=== PATIENT | male | born 1940 | race Caucasian/White ===

== ENCOUNTER → 2016-11-13 | Outpatient (CLI) | payer MEDICARE, OTHER ==
[~2016-11-13] MED LIST: ALDACTONE PO; ALDACTONE25 MG PO; ANEXSIA 7.5/3251 TA1 PO; ARAVA10 MG PO; ASPIRIN81 M2 PO; BACTRIM-IV160 MG PO; CARVEDILOL12.5 MG PO; CLARITIN10 M3 PO; CLARITIN10 MG PO; COREG6.25 MG PO; DOXYCYCLINE HY100 M3 PO; ENBREL25 MG/0.5 SQ; FLOMAX0.4 M1 PO; FUROSEMIDE40 MG PO; HYDROCODON-ACE1 EAC9 PO; LISINOPRIL10 MG PO; LYRICA50 MG PO; MELATONIN3 M4 PO; MELOXICAM15 MG PO; MELOXICAM7.5 MG/5 M PO; METHOTREXATE25 MG/M3 IJ; MULTIVITAMIN1 UDCAP PO; MULTIVITAMINS1 EAC3 PO; NICOTINE PATCH1 EACH TD; OMEPRAZOLE20 M2 PO; OMEPRAZOLE40 M1 PO; PLAQUENIL200 MG PO; PREDNISONE10 M1 PO; PREDNISONE5 M1 PO; PRILOSEC20 MG PO; SYMBICORT80 INH; TIZANIDINE HCL2 M1 PO; VISTARIL50 MG PO; VITAMIN D 22000 UNIT PO; VITAMIN D2000 UNI1 PO; ZYLOPRIM100 MG PO
--- NOTE | ~2016-11-13 | CT57 ---
[facility] A Service of [facility] & [facility] RADIOLOGY TEXT RESULTS PATIENT: LI MUNOZ LOCATION: [facility] : 41 UNIT #: [id number] AGE: [address]: Eliot Fernandez MD SEX: M ORDER DR: [id number] [facility] [address] [facility]. [place], [place] [address] [id number] O MR#: [id number] Acc #: [id number] NAME: LI MUNOZ. : 1940 SEX: M STUDY DATE/TIME: 11/13/2016 9:27 UNIT: [facility] ROOM: STUDY DESCRIPTION: CT Chest Wo Cont Attending Physician: Eliot Fernandez M.D. Referring Physician: Eliot Fernandez M.D. Ordering Physician: Eliot Fernandez M.D. Primary Care Physician: Dwayne Gordon Jr., M.D. MEDICAL IMAGING REPORT This report is preliminary unless electronic signature is present EXAM High-resolution chest CT INDICATION The patient has a history of shortness of breath for 5-6 months and carries a diagnosis of interstitial lung disease. COMPARISON January 23, [address] images were obtained from the thoracic inlet through the dome of the diaphragm per high-resolution protocol. This CT exam was performed with one or more of the following radiation dose reduction techniques: automatic exposure control, adjustment of mA and/or kV according to patient size, and iterative reconstruction. FINDINGS Comparison is made to a prior exams dating back to January 2014. Background emphysematous changes are again seen. There is also evidence of pulmonary fibrosis with extensive peripheral reticulation noted as well as areas of honeycombing, also noted. I think the appearance is really not significantly changed when compared to January 2014. I do not see any convincing evidence of air trapping. The thyroid gland and trachea appear within normal limits. There is a small hiatal hernia. Patient does have some prominent mediastinal lymph nodes, but I do think they are stable when compared to January 2014. There is no pleural or pericardial effusion. The patient does have some aneurysmal dilatation of the descending thoracic aorta which measures about 3.1 cm proximally, about 3.1 cm in its midportion and about 2.6 cm distally. Images through the upper abdomen demonstrate a left renal cyst. The gallbladder is surgically absent. No acute abnormalities are seen within the upper STS. [facility] A Service of [facility] & [facility] RADIOLOGY TEXT RESULTS PATIENT: LI MUNOZ LOCATION: [facility] : 41 UNIT #: [id number] AGE: [address]: Eliot Fernandez MD SEX: M ORDER DR: abdomen. Review of bony windows does not demonstrate any aggressive osseous abnormalities. No suspicious pulmonary nodules or masses are seen. IMPRESSION 1. Patient is again noted to have background emphysematous changes as well as pulmonary fibrotic changes in a basilar predominant distribution associated with some peripheral reticulation and honeycombing. Similar findings were present on the prior exam from January 2014 and there really not been any significant progression since then. No suspicious pulmonary nodules or masses are seen. 2. Small hiatal hernia. 3. Prominent mediastinal lymph nodes. These were also present on the exam from January 2014 and are probably not significantly changed. 4. Left renal cyst. 5. Please see the body of the report for any other additional incidental findings. Dictated by... Evelin Alvarado M.D. THIS IS AN ELECTRONICALLY VERIFIED REPORT Evelin Alvarado M.D. at 11/16/2016 3:39 PM JULIO CESAR/jw TD: 11/14/2016 22:21 JOB #: [id number] MEDICAL IMAGING REPORT Page 1 of 1 COPY
== END | disposition home or self-care (01) ==
LOC: CCAT 08:53
DX: J84.9 Interstitial pulmonary disease, unspecified (principal); K44.9 Diaphragmatic hernia without obstruction or gangrene; N28.1 Cyst of kidney, acquired
CPT/HCPCS: 71250

== ENCOUNTER 2016-11-30 08:40 | Inpatient (IN) | payer MEDICARE, OTHER ==
--- NOTE | ~2016-11-30 | CO ---
Unit #: [id number] #: [id number] Patient: LI MUNOZ [id number] [facility]. [place], [place] [address] [id number] I MR#: [id number] NAME: LI MUNOZ. ROOM: 311 Age: 76 Sex: M Admission Date: 11/30/2016 : 1940 Attending Physician: Fouzia Mcdonnell M.D. Primary Care Physician: Dwayne Gordon Jr., M.D. CONSULTATION REPORT REVISED REPORT HISTORY OF PRESENT ILLNESS This is a 76-year-old gentleman, who sees Dr. Mcdonnell with severely dilated nonischemic cardiomyopathy, ejection fraction was 10% to 15%. The patient has an AICD implanted. He is known to have chronic systolic heart failure, hypertension, hyperlipidemia, and COPD for which he is on nighttime oxygen. Normal coronaries in 2013. The patient now presents with worsening chest pain. He apparently was on walking up and down the steps at his house multiple times. He started to have pain across the chest radiating to both upper shoulders and diaphoresis. The patient has felt fatigue, has had insomnia for several days. He has been unable to sleep well. Denies any additional shortness of breath, cough, or paroxysmal nocturnal dyspnea. He does have some leg edema. Troponin has been negative in the emergency room. No acute ischemic changes. He went to see Dr. Fernandez, ordered CT scan of the chest. No nodules; however, there was presence of pulmonary fibrosis and emphysematous changes. The patient does not wear his oxygen regularly. We have been asked to see him for management of what this is probably nonischemic cardiac chest pain and to manage probable COPD exacerbation. PAST MEDICAL HISTORY Significant for nonischemic cardiomyopathy, mitral regurgitation, moderate pulmonary hypertension with RSVP 50 to 60, hypertension, hyperlipidemia, left bundle-branch block, diabetes mellitus type 2, chronic obstructive pulmonary disease, obstructive sleep apnea, history of rheumatoid arthritis, history of chronic GERD, history of esophageal strictures. PAST SURGICAL HISTORY Significant for AICD implantation, cholecystectomy, eye surgery. SOCIAL HISTORY The patient lives at home alone. He has limited activity because he has significant arthritis. He still smokes about a pack a day. No history of illicit drug or alcohol use. FAMILY HISTORY Negative for coronary artery disease. ALLERGIES The patient is allergic to codeine and ibuprofen. HOME MEDICATIONS Include hydrocodone/acetaminophen 7.5/325 mg b.i.d. p.r.n., Symbicort Unit #: [id number] #: [id number] Patient: LI MUNOZ 80/4.5 two puffs b.i.d., Lyrica 50 mg b.i.d., multivitamin one tablet daily, vitamin D 2000 units daily, meloxicam 15 mg daily p.r.n., Flomax 0.4 mg daily, Plaquenil 200 mg b.i.d., omeprazole 20 mg daily, furosemide 40 mg daily, lisinopril 10 mg daily, Aldactone 12.5 mg daily, Claritin 10 mg daily, Zanaflex 2 mg q.8 hours as needed, leflunomide 20 mg daily, carvedilol 12.5 mg b.i.d. REVIEW OF SYSTEMS Negative except as per the history of present illness. PHYSICAL EXAMINATION VITAL SIGNS: T-current 98.1, pulse 70, respiratory rate 26, blood pressure 134/73, saturations 94% on 2 L. HEENT: Extraocular movements are intact. CHEST: Clear to auscultation bilaterally. CARDIOVASCULAR: Regular rate. No gallop. ABDOMEN: Soft, nontender, and nondistended. EXTREMITIES: Shows edema +2 with some pitting areas. DIAGNOSTIC STUDIES LABORATORY RESULTS: Chest x-ray, which shows some diffuse interstitial infiltrates without clear consolidation. Dictated by... Chinyere Lujan/gold TD: 12/01/2016 06:23 JOB #: [id number] CONTINUATION PHYSICAL EXAMINATION VITAL SIGNS: T-current is 98.1, pulse is 70, respiratory rate 16, and blood pressure 148/82. HEENT: Extraocular movements are intact. CHEST: Shows very decreased breath sounds bilaterally. Some soft wheezes. CARDIOVASCULAR: Regular rate. No gallop. ABDOMEN: Soft, nontender, and nondistended. EXTREMITIES: Shows no evidence of edema. DIAGNOSTIC STUDIES LABORATORY RESULTS: The BNP is 166. BUN and creatinine 13/0.7, potassium 3.8, and glucose 122. ASSESSMENT/PLAN 1. Chronic obstructive pulmonary disease exacerbation with possible infection in the pulmonary fibrosis that the patient has. I am going to start the patient on doxycycline 100 mg b.i.d. to cover for staph and for atypical organisms. 2. Start a short course of steroids and then restart the patient's DuoNeb and Symbicort. Unit #: [id number] #: [id number] Patient: LI MUNOZ Thank you very much. Please page me at [phone] if you have any questions. Dictated by... Chinyere Lujan/gold TD: 12/01/2016 02:56 JOB #: [id number] CC: Deirdre/bruceision Please Delete CONSULTATION REPORT Page 1 of 1 X Brenden Treviño MD X CONSULTATION REPORT
--- NOTE | ~2016-11-30 | CR72 ---
[facility] A Service of [facility] & [facility] & [facility] RADIOLOGY TEXT RESULTS PATIENT: LI MUNOZ LOCATION: [facility] 311-01 : 41 UNIT #: [id number] AGE: [address]: Fouzia Mcdonnell MD SEX: M ORDER DR: [id number] [facility] [address] [facility]. [place], [place] [address] [id number] MR#: [id number] Acc #: [id number] NAME: LI MUNOZ. : 1940 SEX: M STUDY DATE/TIME: 11/30/2016 9:09 UNIT: [facility] ROOM: STUDY DESCRIPTION: CR Chest Single View Portable Attending Physician: David Black M.D. Ordering Physician: David Black M.D. Primary Care Physician: Dwayne Gordon Jr., M.D. MEDICAL IMAGING REPORT This report is preliminary unless electronic signature is present EXAM Portable chest one-view 11/30/2016 HISTORY 04/08/2014 HISTORY Chest pain for 3 days. FINDINGS Left side dual lead pacemaker device. There is extensive interstitial infiltrate with a basilar predominance, possibly representing interstitial edema, but there is no consolidation or effusion or pneumothorax. There is mild cardiomegaly. Dictated by... Jayro Diaz M.D. THIS IS AN ELECTRONICALLY VERIFIED REPORT Jayro Diaz M.D. at 11/30/2016 4:26 PM TEV/ea TD: 11/30/2016 12:39 JOB #: [id number] MEDICAL IMAGING REPORT Page 1 of 1 COPY
--- NOTE | ~2016-11-30 | EKG ---
PATIENT: LI MUNOZ UNIT #: [id number] Ventricular Rate: 70 BPM Atrial Rate: 70 BPM P-R Interval: 116 ms QRS Duration: 170 ms Q-T Interval: 488 ms QTC Calculation(Bezet): 527 ms P [place]: 56 degrees Calculated R [place]: -59 degrees Calculated T [place]: -8 degrees Diagnosis Line: Atrial-sensed ventricular-paced rhythm Diagnosis Line: Abnormal ECG Diagnosis Line: When compared with ECG of 08-APR-2014 14:09, Diagnosis Line: Electronic ventricular pacemaker has replaced Diagnosis Line: Sinus rhythm Diagnosis Line: Confirmed by MELISSA SNOW MD ([id number]) on Diagnosis Line: 12/01/2016 6:41:56 AM INTERPRETING MD: BRYAN
--- NOTE | ~2016-11-30 | EKG ---
PATIENT: LI MUNOZ UNIT #: [id number] Ventricular Rate: 64 BPM Atrial Rate: 64 BPM P-R Interval: 170 ms QRS Duration: 162 ms Q-T Interval: 464 ms QTC Calculation(Bezet): 478 ms P [place]: 29 degrees Calculated R [place]: -24 degrees Calculated T [place]: 151 degrees Diagnosis Line: Electronic ventricular pacemaker Diagnosis Line: When compared with ECG of 01-DEC-2016 06:29, Diagnosis Line: (unconfirmed) Diagnosis Line: Vent. rate has increased BY 3 BPM Diagnosis Line: Confirmed by MELISSA SNOW MD ([id number]) on Diagnosis Line: 12/02/2016 2:54:06 PM INTERPRETING MD: BRYAN
--- NOTE | ~2016-11-30 | EKG ---
PATIENT: LI MUNOZ UNIT #: [id number] Ventricular Rate: 61 BPM Atrial Rate: 61 BPM P-R Interval: 164 ms QRS Duration: 160 ms Q-T Interval: 480 ms QTC Calculation(Bezet): 483 ms P [place]: 77 degrees Calculated R [place]: 70 degrees Calculated T [place]: 166 degrees Diagnosis Line: Electronic ventricular pacemaker Diagnosis Line: When compared with ECG of 30-NOV-2016 09:11, Diagnosis Line: Vent. rate has decreased BY 9 BPM Diagnosis Line: Confirmed by MELISSA SNOW MD ([id number]) on Diagnosis Line: 12/02/2016 2:52:33 PM INTERPRETING MD: BRYAN
--- NOTE | ~2016-11-30 | CO ---
Unit #: [id number] #: [id number] Patient: LI MUNOZ [id number] [facility]. [place], [place] [address] [id number] I MR#: [id number] NAME: LI MUNOZ ROOM: 311 Age: 76 Sex: M Admission Date: 11/30/2016 : 1940 Attending Physician: Fouzia Mcdonnell M.D. Primary Care Physician: Dwayne Gordon Jr., M.D. Consultation Date: 11/30/2016 CONSULTATION REPORT HISTORY OF PRESENT ILLNESS This is a 76-year-old gentleman, who sees Dr. Mcdonnell with severely dilated nonischemic cardiomyopathy, ejection fraction was 10% to 15%. The patient has an AICD implanted. He is known to have chronic systolic heart failure, hypertension, hyperlipidemia, and COPD for which he is on nighttime oxygen. Normal coronaries in 2013. The patient now presents with worsening chest pain. He apparently was on walking up and down the steps at his house multiple times. He started to have pain across the chest radiating to both upper shoulders and diaphoresis. The patient has felt fatigue, has had insomnia for several days. He has been unable to sleep well. Denies any additional shortness of breath, cough, or paroxysmal nocturnal dyspnea. He does have some leg edema. Troponin has been negative in the emergency room. No acute ischemic changes. He went to see Dr. Fernandez, ordered CT scan of the chest. No nodules; however, there was presence of pulmonary fibrosis and emphysematous changes. The patient does not wear his oxygen regularly. We have been asked to see him for management of what this is probably nonischemic cardiac chest pain and to manage probable COPD exacerbation. PAST MEDICAL HISTORY Significant for nonischemic cardiomyopathy, mitral regurgitation, moderate pulmonary hypertension with RSVP 50 to 60, hypertension, hyperlipidemia, left bundle-branch block, diabetes mellitus type 2, chronic obstructive pulmonary disease, obstructive sleep apnea, history of rheumatoid arthritis, history of chronic GERD, history of esophageal strictures. PAST SURGICAL HISTORY Significant for AICD implantation, cholecystectomy, eye surgery. SOCIAL HISTORY The patient lives at home alone. He has limited activity because he has significant arthritis. He still smokes about a pack a day. No history of illicit drug or alcohol use. FAMILY HISTORY Negative for coronary artery disease. ALLERGIES The patient is allergic to codeine and ibuprofen. HOME MEDICATIONS Include hydrocodone/acetaminophen 7.5/325 mg b.i.d. p.r.n., Symbicort 80/4.5 two puffs b.i.d., Lyrica 50 mg b.i.d., multivitamin one tablet daily, vitamin D 2000 units daily, meloxicam 15 mg daily p.r.n., Flomax Unit #: [id number] #: [id number] Patient: LI MUNOZ 0.4 mg daily, Plaquenil 200 mg b.i.d., omeprazole 20 mg daily, furosemide 40 mg daily, lisinopril 10 mg daily, Aldactone 12.5 mg daily, Claritin 10 mg daily, Zanaflex 2 mg q.8 hours as needed, leflunomide 20 mg daily, carvedilol 12.5 mg b.i.d. REVIEW OF SYSTEMS Negative except as per the history of present illness. PHYSICAL EXAMINATION VITAL SIGNS: T-current 98.1, pulse 70, respiratory rate 26, blood pressure 134/73, saturations 94% on 2 L. HEENT: Extraocular movements are intact. CHEST: Clear to auscultation bilaterally. CARDIOVASCULAR: Regular rate. No gallop. ABDOMEN: Soft, nontender, and nondistended. EXTREMITIES: Shows edema +2 with some pitting areas. DIAGNOSTIC STUDIES LABORATORY RESULTS: Chest x-ray, which shows some diffuse interstitial infiltrates without clear consolidation. *Faxed to Dr. Treviño's office on 12/01/2016 for completion. cd Dictated by..Chinyere Poon/gold TD: 12/01/2016 06:23 JOB #: [id number] CONSULTATION REPORT Page 1 of 1 X Brenden Treviño MD CONSULTATION REPORT
--- NOTE | ~2016-11-30 | DS ---
Unit #: [id number] #: [id number] Patient: LI MUNOZ [id number] [place], [place] [address] [id number] I MR#: [id number] NAME: LI MUNOZ. ROOM: 311 Age: 76 Sex: M Admission Date: 11/30/2016 : 1940 Discharge Date: 12/02/2016 Attending Physician: Fouzia Mcdonnell M.D. Primary Care Physician: Dwayne Gordon Jr., M.D. DISCHARGE SUMMARY DISCHARGE DIAGNOSES 1. Acute on chronic hypoxic respiratory failure. 2. Acute chronic obstructive pulmonary disease exacerbation. 3. Atypical chest pain, ruled out for an acute myocardial infarction. 4. Normal coronaries per cardiac catheterization, 03/2014. 5. Nonischemic cardiomyopathy with ejection fraction of 10% to 15% status post automatic implantable cardioverter-defibrillator implantation. 6. Hypertension. 7. Hyperlipidemia. 8. Diabetes mellitus type 2. 9. Obstructive sleep apnea. 10. Nicotine abuse. DISCHARGE MEDICATIONS 1. Omeprazole 40 mg daily. 2. Doxycycline 100 mg b.i.d. for 6 more days. 3. Prednisone taper as written. 4. Symbicort 80/4.5 mcg 2 puffs b.i.d. 5. Flomax 0.4 mg daily. 6. Lyrica 50 mg b.i.d. 7. Claritin 10 mg daily. 8. Plaquenil 200 mg b.i.d. 9. Carvedilol 12.5 mg b.i.d. 10. Furosemide 40 mg daily. 11. Lisinopril 10 mg daily. 12. Leflunomide 20 mg daily. 13. Multivitamin 1 tablet daily. 14. Meloxicam 15 mg daily. 15. [place] 7.5/325 mg b.i.d. p.r.n. 16. Aldactone 12.5 mg daily. 17. Zanaflex 2 mg q.8 hours. 18. Vitamin D 2,000 units daily. HOSPITAL COURSE This is a 76-year-old white male who presented to the emergency room with the complaint of chest pain and shortness of breath. He was ruled out for an acute myocardial infarction with negative cardiac enzymes and troponin. His electrocardiogram was unremarkable. He had normal coronary per cardiac catheterization in 2013. He has chronic systolic heart failure with known left ventricular systolic dysfunction with ejection fraction of 10% to 15%. He has a biventricular AICD. His BNP was 166 with no heart failure noted on examination or on chest x-ray. It was felt the patient's chest pain and dyspnea were most likely due to COPD exacerbation. Unit #: [id number] #: [id number] Patient: LI MUNOZ Kamila was asked to see the patient for management. He was started on IV steroids that were transitioned to oral. He was also started on oral antibiotic. The patient had oxygen, which was apparently not in use at home, and machine may be broken. He was placed on supplemental oxygen during his stay. His home oxygen needs will be attained prior to discharge and will have wound care specialist to set up 2 liters of oxygen at home as previously. He is symptomatically improved and wants to go home. He is stable for discharge today. ASSESSMENT VITAL SIGNS: Blood pressure 139/69, heart rate 72, temperature 97.8, oxygen saturation 94% on 2 liters nasal cannula. NECK: Trachea is midline. No thyromegaly or lymphadenopathy. No jugular venous distention. HEART: S1, S2. Heart sounds are normal. No murmurs. No rubs. No clicks. Regular rate and rhythm. LUNGS: With diminished breath sounds in both lungs with scattered rhonchi. No rales. ABDOMEN: Soft, nontender. Bowel sounds are present. EXTREMITIES: Without leg edema. DIAGNOSTIC STUDIES LABORATORY STUDIES: Glucose 198, BUN 25, creatinine 1, sodium 139, potassium 4.5. Troponin 0.04. Procalcitonin less than 0.05. White count 16.7, hemoglobin 12.2, hematocrit 37.4, platelet count 193. CARDIOVASCULAR: Rhythm strips show ventricularly paced rhythm, underlying sinus. DISCHARGE INSTRUCTIONS 1. The patient will be discharged home today. 2. Follow up with his primary care physician in 7-10 days. 3. Follow up with Dr. Treviño in 2 weeks. 4. Follow up with Dr. Mcdonnell in 8 weeks. 5. The patient will be discharged home on oxygen at 2 liters nasal cannula, as previous, unless he disqualifies. 6. Continue his home nebulizer treatments, as well as Symbicort. 7. Omeprazole has been increased to 40 mg daily. 8. No changes in his cardiac medications. 9. Taper prednisone as written. 10. He will continue on doxycycline for 6 more days. Dictated by... Amari Epstein A.P.R.N. for Chinyere Funez/ab TD: 12/03/2016 14:01 JOB #: [id number] Unit #: [id number] #: [id number] Patient: LI MUNOZ DISCHARGE SUMMARY Page 1 of 1 X Amari Epstein APRN DISCHARGE SUMMARY
--- NOTE | ~2016-11-30 | HP ---
Unit #: [id number] #: [id number] Patient: LI MUNOZ [id number] [facility]. [place] [id number] [facility]. [place], [place] [address] [id number] MR#: [id number] NAME: LI MUNOZ ROOM: Age: 76 Sex: M Admission Date: 11/30/2016 : 1940 Attending Physician: David Black M.D. Primary Care Physician: Dwayne Gordon Jr., M.D. HISTORY AND PHYSICAL HISTORY OF PRESENT ILLNESS This is a 76-year-old white male who is known to Dr. Mcdonnell that has a history of severely dilated nonischemic cardiomyopathy with ejection fraction in the past of 10% to 15%. He has AICD implanted. He is known to have chronic systolic heart failure, hypertension, hyperlipidemia and COPD which he is on nocturnal oxygen. He had a cardiac catheterization in 2013 which showed angiographically normal coronaries. The patient presents to the emergency room with a complaint of chest pain and shortness of breath. On , he was going up and down his basement stairs because of a water leak. On two occasions, after coming back up 14 stairs, he developed pain across his upper chest that radiated into both upper shoulders and arms associated with shortness of breath and mild diaphoresis. On the third occasion after going up and down the stairs, he had no additional discomfort. His chest pain is described with a "hard pain" that lasts for a few minutes that were relieved after rest. Since that time, he has had no additional episodes of chest pain. He has not felt well where he says he has had some pain in both of his knees. He has been unable to sleep for the past few days. He denies any additional shortness of breath, cough, paroxysmal nocturnal dyspnea, orthopnea. He does have occasional leg edema. In the emergency room, his troponin has been negative. Electrocardiogram shows no acute ischemic changes. BNP 166 with no acute heart failure found on chest x-ray. He went to see his film maker, Dr. Fernandez, at the beginning of the month and had a CT of his chest which found him to have pulmonary fibrosis and emphysematous changes with incidental finding of 3.1 descending thoracic dilatation. Upon further questioning, the patient states he does not wear his nocturnal oxygen at home because he feels that it is not helping him much. PAST MEDICAL HISTORY 1. Cath 04/08/[address] Pringle at [facility] that reveals angiographically normal coronaries. Ejection fraction of 15%. Severe left atrial enlargement. Moderate to severe mitral regurgitation and mitral valve prolapse. 2. 2D echocardiogram 06/19/2014, shows an ejection fraction equal to 10% to 15% with mildly enlarged left atrium with moderately dilated left ventricle. Moderate mitral regurgitation, mild to moderate tricuspid regurgitation. Right ventricular systolic pressure 40 to 50 mmHg. 3. Chronic systolic heart failure. 4. Severe dilated nonischemic cardiomyopathy, status post biventricular automatic implantable cardioverter defibrillator implantation Unit #: [id number] #: [id number] Patient: LI MUNOZ 07/22/[address] Beltre with [employer] device at [facility]. 5. Hypertension. 6. Hyperlipidemia. 7. Left bundle branch block. 8. Diabetes mellitus type 2. 9. Chronic obstructive pulmonary disease, has nocturnal oxygen. 10. Obstructive sleep apnea. 11. Rheumatoid arthritis. 12. Gastroesophageal reflux disease. 13. Esophageal stricture with history of dilatation. 14. Active smoker. PAST SURGICAL HISTORY 1. AICD implantation. 2. Cholecystectomy. 3. Eye surgery. SOCIAL HISTORY The patient lives at home alone. He has limited activity because of arthritis in his knees. He continues to smoke more than a pack of cigarettes a day. He denies illicit drug and alcohol use. FAMILY HISTORY Negative for coronary artery disease. ALLERGIES Codeine and ibuprofen. HOME MEDICATIONS 1. Hydrocodone/acetaminophen 7.5/325 b.i.d. p.r.n. 2. Symbicort 80 mcg/4.5 mcg, two puffs b.i.d. 3. Lyrica 50 mg b.i.d. 4. Multivitamin, one tablet daily. 5. Vitamin D 2000 units daily. 6. Meloxicam 15 mg daily. 7. Flomax 0.4 mg daily. 8. Plaquenil 200 mg b.i.d. 9. Omeprazole 20 mg daily. 10. Furosemide 40 mg daily. 11. Lisinopril 10 mg daily. 12. Aldactone 12.5 mg daily. 13. Claritin 10 mg daily. 14. Zanaflex 2 mg q.8 hours. 15. Leflunomide 20 mg daily. 16. Carvedilol 12.5 mg b.i.d. REVIEW OF SYSTEMS CONSTITUTIONAL: Negative for fever or chills. Has no weight gain or weight loss. HEENT: No headache, hearing or visual changes. Has an occasional difficulty with swallowing. No dizziness. CARDIOVASCULAR: Has chest pain described in HPI. Denies palpitations. No paroxysmal nocturnal dyspnea or orthopnea. No syncope or near syncope. RESPIRATORY: Positive for dyspnea that accompanies chest pain. No cough or hemoptysis. GASTROINTESTINAL: No abdominal pain, nausea or vomiting. No constipation or melena. EXTREMITIES: Has occasional lower extremity edema. Unit #: [id number] #: [id number] Patient: LI MUNOZ PHYSICAL EXAMINATION VITAL SIGNS: Blood pressure 134/73, heart rate 70, temperature 98.1. BMI 31. GENERAL: This is a very pleasant 76-year-old white male who is in no acute respiratory distress. NEUROLOGICAL: He is awake, alert and oriented without focal weaknesses. NECK: Trachea midline. No thyromegaly or lymphadenopathy. No jugular venous distention. HEART: S1, S2 heart sounds are normal with a soft systolic murmur heard best at the apex. No rubs or clicks. Regular rate and rhythm. LUNGS: Coarse rhonchi both lungs. ABDOMEN: Soft, nontender with bowel sounds present. EXTREMITIES: Without leg edema. SKIN: Warm and dry. DIAGNOSTIC STUDIES LABORATORY: White count 9.3, hemoglobin 12.6, hematocrit 38.7, platelet count 185, sodium 140, potassium 3.8, BUN 13, creatinine 0.7, glucose 122. BNP 166. Troponin less than 0.05 x2. IMAGING: Chest x-ray shows mild cardiomegaly. There are extensive interstitial infiltrates with basal predominant or questionable interstitial edema. No effusion or consolidation. CARDIOVASCULAR: Electrocardiogram shows ventricularly paced rhythm with underlying sinus with rate of 70 beats/minute. IMPRESSION 1. Acute respiratory failure. 2. Acute chronic obstructive pulmonary disease exacerbation. 3. Chest pain, questionable etiology. 4. Chronic systolic heart failure. 5. Normal coronary arteries per cardiac catheterization in 2013. 6. Nonischemic cardiomyopathy, status post biventricular automatic implantable cardioverter defibrillator implantation. 7. Hypertension. 8. Hyperlipidemia. 9. Obstructive sleep apnea. 10. Nicotine abuse. PLAN The patient's symptoms are most likely not ischemic in origin. His troponin is negative. He has had no recurrence of chest pain. He has been ruled out for an acute myocardial infarction. The patient's chest pain is most likely secondary to respiratory failure and COPD exacerbation. Will ask to see the patient for evaluation. Continue on his current medication regimen with beta coty, LISA inhibitor and oral diuretics. Will increase the dose of furosemide. Repeat troponin and electrocardiogram. Lovenox for DVT prophylaxis. Unit #: [id number] #: [id number] Patient: LI MUNOZ Dictated by Amari Epstein A.P.R.N. for Chinyere Sumner/saul TD: 11/30/2016 12:53 JOB #: [id number] HISTORY AND PHYSICAL Page 1 of 1 X Amari Epstein APRN X HISTORY AND PHYSICAL
[~2016-11-30 08:40] MED LIST changes: -ALDACTONE25 MG PO; -ARAVA10 MG PO; -CARVEDILOL12.5 MG PO; -DOXYCYCLINE HY100 M3 PO; -FLOMAX0.4 M1 PO; -HYDROCODON-ACE1 EAC9 PO; -LYRICA50 MG PO; -MELOXICAM15 MG PO; -MULTIVITAMINS1 EAC3 PO; -OMEPRAZOLE20 M2 PO; -OMEPRAZOLE40 M1 PO; -PREDNISONE10 M1 PO; -SYMBICORT80 INH; -TIZANIDINE HCL2 M1 PO; -VITAMIN D 22000 UNIT PO
[2016-11-30] MEDS ORDERED: HYDROCODON-ACE1 EAC9 PO (09:21)
[2016-11-30 09:22] LABS: POC - TROPONIN <0.05 ng/mL (<=0.05)
[2016-11-30] MEDS ORDERED: SYMBICORT80 INH (09:22)
[2016-11-30] MEDS ORDERED: LYRICA50 MG PO (09:22)
[2016-11-30] MEDS ORDERED: VITAMIN D 22000 UNIT PO (09:23)
[2016-11-30] MEDS ORDERED: MULTIVITAMINS1 EAC3 PO (09:23)
[2016-11-30] MEDS ORDERED: MELOXICAM15 MG PO (09:23)
[2016-11-30] MEDS ORDERED: FLOMAX0.4 M1 PO (09:24)
[2016-11-30] MEDS ORDERED: PLAQUENIL200 MG PO (09:25)
[2016-11-30 09:26] LABS: BASOPHIL# 0.1 X10e3 (0-0.3); BASOPHIL% 0.7 % (0-2.5); EOSINOPHIL# 0.6 X10e3 (0-0.7); EOSINOPHIL% 6.6 % (0.0-7.0); HEMATOCRIT 38.7 % (38.0-50.0); HEMOGLOBIN 12.6 gm/dL (13.0-16.0); LYMPHOCYTE# 2.1 X10e3 (1.0-3.5); LYMPHOCYTE% 22.6 % (17.0-45.0); MEAN CELL VOLUME 95.2 FL (83-96); MEAN CORPUSCULAR HGB CONC 32.6 g/dL (30-36); MEAN PLATELET VOLUME 9.3 FL (6.5-11.5); MONOCYTE# 0.9 X10e3 (0-1.0); MONOCYTE% 10.2 % (3.0-12.0); NEUTROPHIL# 5.6 X10e3 (1.5-7.1); NEUTROPHIL% 59.9 % (40-75); PLATELET COUNT 185 X10e3 (140-420); RED BLOOD COUNT 4.06 X10e (3.90-5.60); RED CELL DISTRIBUTION WIDTH 13.8 % (11.0-15.5); WHITE BLOOD COUNT 9.3 X10e3 (4.0-10.5)
[2016-11-30] MEDS ORDERED: FUROSEMIDE40 MG PO (09:26)
[2016-11-30] MEDS ORDERED: OMEPRAZOLE20 M2 PO (09:26)
[2016-11-30 09:27] LABS: DIFF IND NO
[2016-11-30] MEDS ORDERED: LISINOPRIL10 MG PO (09:27)
[2016-11-30] MEDS ORDERED: ALDACTONE25 MG PO (09:27)
[2016-11-30] MEDS ORDERED: CLARITIN10 M3 PO (09:28)
[2016-11-30] MEDS ORDERED: ARAVA10 MG PO (09:29)
[2016-11-30] MEDS ORDERED: TIZANIDINE HCL2 M1 PO (09:29)
[2016-11-30] MEDS ORDERED: CARVEDILOL12.5 MG PO (09:29)
[2016-11-30 09:52] LABS: ALBUMIN SERUM 3.5 g/dL (3.5-5.0); BILIRUBIN, DIRECT 0.1 mg/dL (0.0-0.2); BILIRUBIN,INDIRECT 0.2 mg/dL (0.0-0.9); BILIRUBIN,TOTAL 0.3 mg/dL (0.2-2.0); BUN/CREATININE RATIO 18.57; CALCIUM SERUM 8.6 mg/dL (8.4-10.2); CREATININE SERUM 0.7 mg/dL (0.6-1.4); GLOM FILT RATE Estimated 92.4 mL/min (>60); POTASSIUM 3.8 mmol/L (3.5-5.1); PROTEIN TOTAL SERUM 7.2 g/dL (6.0-8.3)
[2016-11-30 10:49] LABS: POC - CKMB 1.2 ng/mL (0.0-7.9); POC - TROPONIN <0.05 ng/mL (<=0.05)
[2016-12-01 07:25] LABS: CALCIUM SERUM 8.5 mg/dL (8.4-10.2); CREATININE SERUM 0.9 mg/dL (0.6-1.4); GLOM FILT RATE Estimated 83.3 mL/min (>60); POTASSIUM 4.1 mmol/L (3.5-5.1)
[2016-12-01 07:58] LABS: LEGIONELLA AG URINE NEG (NEG)
[2016-12-02 06:32] LABS: BASOPHIL% 0.1 % (0-2.5); HEMATOCRIT 37.4 % (38.0-50.0); HEMOGLOBIN 12.2 gm/dL (13.0-16.0); LYMPHOCYTE# 1.2 X10e3 (1.0-3.5); LYMPHOCYTE% 7.3 % (17.0-45.0); MEAN CORPUSCULAR HEMOGLOBIN 30.7 PG (28-34); MEAN CORPUSCULAR HGB CONC 32.7 g/dL (30-36); MEAN PLATELET VOLUME 9.7 FL (6.5-11.5); MONOCYTE# 0.6 X10e3 (0-1.0); MONOCYTE% 3.6 % (3.0-12.0); NEUTROPHIL# 14.8 X10e3 (1.5-7.1); PLATELET COUNT 193 X10e3 (140-420); RED BLOOD COUNT 3.98 X10e (3.90-5.60); RED CELL DISTRIBUTION WIDTH 13.8 % (11.0-15.5); WHITE BLOOD COUNT 16.7 X10e3 (4.0-10.5)
[2016-12-02 06:33] LABS: DIFF IND YES
[2016-12-02 06:46] LABS: CALCIUM SERUM 8.5 mg/dL (8.4-10.2); GLOM FILT RATE Estimated 73.3 mL/min (>60); POTASSIUM 4.5 mmol/L (3.5-5.1)
[2016-12-02 06:57] LABS: PLATELET ESTIMATE NORMAL (NORMAL)
[2016-12-02] MEDS ORDERED: DOXYCYCLINE HY100 M3 PO (13:05)
[2016-12-02] MEDS ORDERED: PREDNISONE10 M1 PO (13:06)
[2016-12-02] MEDS ORDERED: OMEPRAZOLE40 M1 PO (13:08)
== END 2016-12-02 15:40 | disposition home or self-care (01) | DRG 189 ==
LOC: CED 08:40 → C3A PCU 12:28 → CEDOF 12:28 → CED 13:19 → C3A PCU 16:21 → CEDOF 16:21 → C3A PCU 12-02 15:40
PROVIDERS: Emergency Medicine; Internal Medicine Cardiovascular Disease; Internal Medicine Pulmonary Disease
DX: J96.21 Acute and chronic respiratory failure with hypoxia (principal); I42.8 Other cardiomyopathies; I11.0 Hypertensive heart disease with heart failure; I50.22 Chronic systolic (congestive) heart failure; J44.1 Chronic obstructive pulmonary disease with (acute) exacerbation; R07.89 Other chest pain; F17.210 Nicotine dependence, cigarettes, uncomplicated; E78.5 Hyperlipidemia, unspecified; E11.9 Type 2 diabetes mellitus without complications; G47.33 Obstructive sleep apnea (adult) (pediatric); Z95.810 Presence of automatic (implantable) cardiac defibrillator; I44.7 Left bundle-branch block, unspecified; M06.9 Rheumatoid arthritis, unspecified; K21.9 Gastro-esophageal reflux disease without esophagitis; Z99.81 Dependence on supplemental oxygen; Z88.5 Allergy status to narcotic agent; Z88.6 Allergy status to analgesic agent
CPT/HCPCS: 36415; 71010; 80048; 80076; 82308; 82553; 82947; 83880; 84484; 85025; 87070; 87449; 87633; 87899; 93005; 94640; 94760; 99291; J1650; J1815; J1940; J2920; J2930